=== PATIENT | female | born 2000 | race Two or more races ===

== ENCOUNTER → 2022-03-07 12:06 | Outpatient (BNVA) | payer OTHER, SELFPAY | PROVIDERS: PCP Pediatrics Adolescent Medicine; Visit Provider Physician Assistant Medical | DX: S80.871A Other superficial bite, right lower leg, initial encounter (principal); Y04.1XXA Assault by human bite, initial encounter; Z23 Encounter for immunization | CPT/HCPCS: 99203 ==